=== PATIENT | female | born 1970 | race Two or more races ===

== ENCOUNTER 2018-10-05 16:38 | Emergency (ER) | payer OTHER ==
[2018-10-05 17:14] VITALS: BP 118/87
--- NOTE | 2018-10-05 17:28 | UC ---
Throat Pain/Nasal Juventino HPI - HPI Summary HPI Summary: 48 yo female presents with sore throat. She tells me that yesterday she began to have mild throat pain on the left side that hurt when she swallowed. Today the pain is worse and is radiating into her left ear. She is able to eat and drink, but has pain when swallowing. She has taken some tylenol for her discomfort, which does help. She denies fever, chills, sinus symptoms, rash, cough, or difficulty breathing. - History of Current Complaint Chief Complaint: UCEar Stated Complaint: TONSIL PAIN Time Seen by Provider: 10/05/18 17:27 Hx Obtained From: Patient Onset/Duration: Gradual Onset Severity: Severe Pain Intensity: 9 Pain Scale Used: 0-10 Numeric - Allergies/Home Medications Allergies/Adverse Reactions: Allergies Allergy/AdvReac Type Severity Reaction Status Date / Time Sulfa (Sulfonamide Allergy Unknown Unknown Verified 10/05/18 17:14 Antibiotics) Reaction Details Home Medications: Home Medications Ascorbic Acid TAB* [Vitamin C TAB*] 500 mg PO DAILY 10/05/18 [History Confirmed 10/05/18] Levothyroxine TAB* [Synthroid TAB*] 100 mcg PO DAILY 10/05/18 [History Confirmed 10/05/18] Magnesium Oxide TAB* [MagOx 400 TAB*] 400 mg PO DAILY 10/05/18 [History Confirmed 10/05/18] Vitamin B Complex TAB* [B Complex-50*] 1 tab PO DAILY 10/05/18 [History Confirmed 10/05/18] PMH/Surg Hx/FS Hx/Imm Hx Endocrine History: Hypothyroidism - Surgical History Surgical History: Yes Surgery Procedure, Year, and Place: C SECTION - Family History Known Family History: Positive: Non-Contributory - Social History Occupation: Employed Full-time Lives: With Family Alcohol Use: None Substance Use Type: None Smoking Status (MU): Never Smoked Tobacco Review of Systems All Other Systems Reviewed And Are Negative: Yes Constitutional: Positive: Negative Skin: Positive: Negative Eyes: Positive: Negative ENT: Positive: Sore Throat Respiratory: Positive: Negative Cardiovascular: Positive: Negative Gastrointestinal: Positive: Negative Neurovascular: Positive: Negative Neurological: Positive: Negative Psychological: Positive: Negative Physical Exam - Summary Physical Exam Summary: GENERAL: NAD. WDWN. No pain distress. SKIN: No rashes, sores, lesions, or open wounds. HEENT: Head: AT/NC Eyes: Conjunctiva clear without inflammation or discharge. Ears: Hearing grossly normal. TMs intact, no bulging, erythema, or edema. Nose: Nasal mucosa pink and moist. NTTP maxillary and frontal sinus. Throat: Posterior oropharynx no erythema. LEFT 2+ tonsillar enlargement. No exudates. Uvula midline. No hoarse voice or muffled voice. NECK: Supple. Moderate TTP with left tonsillar LAD. CHEST: CTAB. No r/r/w. No accessory muscle use. Breathing comfortably and in no distress. CV: RRR. Without m/r/g. Pulses intact. Cap refill <2seconds NEURO: Alert. PSYCH: Age appropriate behavior. Triage Information Reviewed: Yes Vital Signs: Initial Vital Signs Temp 98.1 F 10/05/18 17:10 Pulse 106 10/05/18 17:10 Resp 18 10/05/18 17:10 BP 118/87 10/05/18 17:10 Pulse Ox 100 10/05/18 17:10 Vital Signs Reviewed: Yes Throat Pain/Nasal Course/Dx - Course Course Of Treatment: In the clinic pt was given lidocaine viscous, which improved her discomfort. Suspect tonsillitis. Will rx for amoxicillin and lidocaine. Advised to take tylenol/ibuprofen for discomfort. - Differential Dx/Diagnosis Provider Diagnosis: Tonsillitis Discharge - Sign-Out/Discharge Documenting (check all that apply): Patient Departure All imaging exams completed and their final reports reviewed: No Studies - Discharge Plan Condition: Stable Disposition: HOME Prescriptions: Amoxicillin PO (*) [Amoxicillin 875 MG (*)] 875 mg PO BID #14 tab Lidocaine 2% VISCOUS* [Xylocaine 2% Viscous*] 15 ml SWISH SWAL Q4H PRN #200 ml PRN Reason: Pain Patient Education Materials: Tonsillitis (ED) Referrals: Shiloh Velasco MD [Primary Care Provider] - Additional Instructions: If you develop a fever, shortness of breath, chest pain, new or worsening symptoms - please call your PCP or go to the ED immediately. May take tylenol or ibuprofen as directed for discomfort - Billing Disposition and Condition Condition: STABLE Disposition: Home
[2018-10-05] MEDS ORDERED: Lidocaine 2% VISCOUS* 15 ML UDC PO ONE (17:43)
== END 2018-10-05 18:15 | disposition home or self-care (01) ==
LOC: UCEAST 16:38
DX: J03.90 Acute tonsillitis, unspecified (principal); E03.9 Hypothyroidism, unspecified; Z88.2 Allergy status to sulfonamides
CPT/HCPCS: 99212; G0463

== ENCOUNTER 2018-10-08 17:53 | Emergency (ER) | payer OTHER ==
[2018-10-08] MEDS ORDERED: Morphine 4 MG/ML VIAL (1 ml) 4 MG/ML VIAL IV ONE (19:51)
[2018-10-08] MEDS ORDERED: NS 0.9% 1000 ML** 1,000 ML IV ONE (19:52)
[2018-10-08] MEDS ORDERED: Clindamycin 600 MG/D5W BAG(*) 600 MG/50 ML BAG IV ONE (19:52)
[2018-10-08] MEDS ORDERED: Dexamethasone IV* 4 MG/ML 1 ML (4 MG) IV SLOW PU ONE (19:52)
--- NOTE | 2018-10-08 20:04 | ED ---
Throat Pain/Nasal Congestion - HPI Summary HPI Summary: 48-year-old female presents with sore throat for past 4 days. She states she started a course of amoxicillin. States that she pain just on left side of her throat. States the pain is increased. denies any difficulty swallowing. She denies any chest pain or shortness breath. She is managing her secretions well. She has been having a fever that have been decreased with Tylenol and ibuprofen. She has no medical conditions. No history of strep. Has never had this before. States the pain radiates up her jaw. - History of Current Complaint Chief Complaint: EDThroatPain Time Seen by Provider: 10/08/18 19:43 - Allergies/Home Medications Allergies/Adverse Reactions: Allergies Allergy/AdvReac Type Severity Reaction Status Date / Time Sulfa (Sulfonamide Allergy Unknown Unknown Verified 10/05/18 17:14 Antibiotics) Reaction Details PMH/Surg Hx/FS Hx/Imm Hx Endocrine/Hematology History: Reports: Hx Thyroid Disease - HYPOTHYROID Cardiovascular History: Denies: Hx Hypertension - Surgical History Surgery Procedure, Year, and Place: C SECTION Infectious Disease History: No Infectious Disease History: Denies: Traveled Outside the [place] in Last 30 Days - Family History Known Family History: Positive: Non-Contributory - Social History Alcohol Use: None Substance Use Type: Reports: None Smoking Status (MU): Never Smoked Tobacco Review of Systems Positive: Fever Positive: Sore Throat Negative: Chest Pain Negative: Shortness Of Breath, Cough Negative: Abdominal Pain All Other Systems Reviewed And Are Negative: Yes Physical Exam Triage Information Reviewed: Yes Vital Signs On Initial Exam: Initial Vitals Temp Pulse Resp BP Pulse Ox 100.7 F 90 18 117/77 98 10/08/18 17:54 10/08/18 17:54 10/08/18 17:54 10/08/18 17:54 10/08/18 17:54 Vital Signs Reviewed: Yes Appearance: Positive: Well-Appearing Skin: Positive: Warm, Dry Head/Face: Positive: Normal Head/Face Inspection Eyes: Positive: Normal, EOMI, [place]AT, Conjunctiva Clear ENT: Positive: Pharyngeal erythema, TMs normal, Tonsillar swelling - left >right , no abscess seen, Uvula midline, Other - soft palate symmetric. Negative: Trismus Respiratory/Lung Sounds: Positive: Clear to Auscultation, Breath Sounds Present Cardiovascular: Positive: Normal, RRR Abdomen Description: Positive: Nontender, Soft Bowel Sounds: Positive: Present Musculoskeletal: Positive: Normal Neurological: Positive: Normal Psychiatric: Positive: Normal Diagnostics - Vital Signs Vital Signs Temp Pulse Resp BP Pulse Ox 10/08/18 17:54 100.7 F 90 18 117/77 98 - Laboratory Result Diagrams: 10/08/18 20:15 10/08/18 20:15 Lab Statement: Any lab studies that have been ordered have been reviewed, and results considered in the medical decision making process. - CT neck CT Interpretation Completed By: Radiologist Summary of CT Findings: IMPRESSION: Pharyngitis, left greater than right, with no visualized abscess. Associated. retropharyngeal effusion. EENT Course/Dx - Course Course Of Treatment: 48-year-old female presents with sore throat for past 4 days. She states she started a course of amoxicillin. States that she pain just on left side of her throat. States the pain is increased. denies any difficulty swallowing. She denies any chest pain or shortness breath. She is managing her secretions well. She has been having a fever that have been decreased with Tylenol and ibuprofen. She has no medical conditions. No history of strep. Has never had this before. States the pain radiates up her jaw. On exam left tonsil is greater than right. Uvula midline. Soft palate symmetric. With the extent of the tonsillitis got CT. CT shows pharyngitis with retropharyngeal effusion. No abscess seen on the tonsil or retropharyngeal. Explained results with patient. Told if having difficulty swallowing to return. will switch patient to clindamycin and start a steroid. Gave referral to ENT to follow-up. Patient understands agrees with plan. - Differential Diagnoses Differential Diagnoses: Pharyngitis, Sinusitis, Tonsilitis - Diagnoses Provider Diagnoses: Pharyngitis Discharge - Sign-Out/Discharge Documenting (check all that apply): Patient Departure Patient Received Moderate/Deep Sedation with Procedure: No - Discharge Plan Condition: Good Disposition: HOME Prescriptions: Clindamycin SOLN* ORALSYR [Cleocin SOLN*] 300 mg PO TID #1 bottle Dexamethasone Oral Solution* [Decadron Oral Solution*] 4 mg PO ONCE #1 udc Magic Mouth Was-MIMI/MAAL/LIDO* 5 ml SWISH SPIT QID #100 ml Patient Education Materials: Pharyngitis (ED) Referrals: Shiloh Velasco MD [Primary Care Provider] - Kun Dailey MD [Medical Doctor] - Additional Instructions: Take clindamycin three times a day for 10 days Take steroid once a day for 5 days Magic mouthwash 5ml swish and spit can use 4x a day Follow up with ENT Can gargle salt water Can use cough drops or products such as cloraseptic spray Return to ED if develop inability to swallow, or difficulty breathing or any new or worsening symptoms - Billing Disposition and Condition Condition: GOOD Disposition: Home
[2018-10-08 20:24] LABS: ABS Basophils 0.1 10^3/ul (0-0.2); ABS Eosinophils 0.1 10^3/ul (0-0.6); ABS Lymphocytes 1.6 10^3/ul (1.0-4.8); ABS Monocytes 0.7 10^3/ul (0-0.8); ABS Neutrophils 5.7 10^3/ul (1.5-7.7); Eosinophil % 1.1 %; Hematocrit 37 % (35-47); Hemoglobin 12.8 g/dL (12.0-16.0); Lymphocyte % 19.4 %; Mean Corpuscular HGB Conc 35 g/dL (31-36); Mean Corpuscular Hemoglobin 30 pg (27-31); Mean Corpuscular Volume 87 fL (80-97); Mean Platelet Volume 7.8 fL (7.4-10.4); Platelet Count 219 10^3/uL (150-450); Red Blood Count 4.26 10^6 /uL (3.70-4.87); Red Cell Distribution Width 13 % (10-15); White Blood Count 8.2 10^3/uL (3.5-10.8)
[2018-10-08 20:41] LABS: Albumin 3.9 g/dL (3.2-5.2); BUN/Creatinine Ratio 10.1 (8-20); C Reactive Protein 97.22 mg/L (<8.01); Calcium 9.1 mg/dL (8.6-10.3); EGFR African American 81.6 (>60); EGFR Non-African American 67.4 (>60); Globulin 3.9 g/dL (2-4); Potassium 3.7 mmol/L (3.5-5.0); Total Bilirubin 0.5 mg/dL (0.2-1.0); Total Protein 7.8 g/dL (6.4-8.9)
[2018-10-08] MEDS ORDERED: Iohexol 300* (CONTRAST) 10 ML SDV IV ONE (20:59)
[2018-10-08] MEDS ORDERED: Acetaminophen ADULT LIQ* 650 MG/20.3 ML UDC PO ONE (22:22)
[2018-10-08] MEDS ORDERED: Lidocaine 2% VISCOUS* 15 ML UDC PO ONE (22:22)
[2018-10-08 22:38] VITALS: BP 116/76
[2018-10-10 11:52] LABS: EBV Capsid Ag IgG Ab Positive (Negative); EBV Capsid Ag IgM Ab Negative (Negative); Epstein-Barr Nuclear Antigen Positive (Negative)
== END 2018-10-08 22:37 | disposition home or self-care (01) ==
LOC: ED 17:53
DX: J02.9 Acute pharyngitis, unspecified (principal)
CPT/HCPCS: 36415; 70491; 80053; 85025; 86140; 86308; 86664; 86665; 96361; 96365; 96375; 99283; A9270-GY; J1100; J2270; Q9967